=== PATIENT | male | born 1975 | race Caucasian/White ===

== ENCOUNTER 2016-12-18 07:21 | Inpatient (IN) | payer BC ==
[~2016-12-18] VITALS: Ht 188 cm; Wt 101.5 kg
[2016-12-18 07:25] VITALS: BP 133/87; PULSE 99; RESP 16; TEMP 98.4; O2SAT 100
[2016-12-18] MEDS ORDERED: DAPA1TAB PO (07:45)
[2016-12-18] MEDS ORDERED: METF1000 PO (07:45)
[2016-12-18] MEDS ORDERED: GLIP10TA6 PO (07:45)
[2016-12-18] MEDS ORDERED: ACYC400T PO (07:45)
[2016-12-18] MEDS ORDERED: DOXY1CAP91 PO (07:46)
[2016-12-18] MEDS ORDERED: VANCOMYCIN INJ 1,000 MG in SODIUM CHLOR 0.9% 250 ML INJ 250 ML IV STA (07:54)
[2016-12-18] MEDS ORDERED: PIPERACIL-TAZO 4.5 GM PREMIX 100 ML IV STA (07:54)
--- NOTE | 2016-12-18 08:08 | PD ---
HPI Chief Complaint: Eye Problems/Injury Time Seen by Provider: 07:54 Travel History International Travel<30 days: No Contact w/Intl Traveler<30days: No Traveled to known affect area: No History of Present Illness HPI 41-year-old male with history of recent diagnosis of diabetes, currently on metformin, presents to the ER today because he states that he had been seen 3 days ago for right elbow skin infection at an urgent care facility, has been on dicloxacillin for 3 days and the area of redness is spreading. He has also noticed a left upper eyelid area of redness and irritation in the last day. He denies any fevers, vomiting, or any other issues. He does not have any other skin lesions. He denies any eye discharge, vision change, or any other issues. Modifying Factors: None Associated Signs & Symptoms: Worsening redness around the right elbow, left upper eyelid skin irritation Risk Factors: Diabetic, recent antibiotic use PFSH Past Medical History Diabetes: Yes (type 2) Patient Takes Glucophage: Yes (METFORMIN) Immunizations Current: Yes Tetanus Vaccination: Unknown Influenza Vaccination: No Social History Alcohol Use: Yes (SOCIALLY) Tobacco Use: No (NEVER) Substance Use: No Allergies-Medications (Allergen,Severity, Reaction): Coded Allergies: No Known Allergies (Unverified , 12/18/16) Reported Meds & Prescriptions Reported Meds & Active Scripts Active Reported Doxycycline (Doxycycline (Monohydrate)) 100 Mg Cap 100 Mg PO BID Acyclovir 400 Mg Tab 400 Mg PO DIRECTED Glipizide 10 Mg Tab 10 Mg PO BIDAC Take 30 minutes before a meal Farxiga (Dapagliflozin) 5 Mg Tab 5 Mg PO DAILY Metformin (Metformin HCl) 1,000 Mg Tab 1,000 Mg PO BIDPC With meals Review of Systems Except as stated in HPI: all other systems reviewed are Neg Physical Exam Narrative GENERAL: Well-developed middle age white male patient currently in no acute distress. Awake and oriented 3. SKIN: Focused skin assessment warm/dry. There is a 1 cm ulcerated area at the posterior part of the right elbow with surrounding erythema and there is also a notable posterior elbow area of induration and erythema measuring about 3 cm. Mildly tender palpation without underlying fluctuance. HEAD: Atraumatic. Normocephalic. EYES: Pupils equal and round. No scleral icterus. No injection or drainage. There is a notable left upper eyelid medially skin erythema which is mildly tender to palpation. No underlying fluctuance. ENT: No nasal bleeding or discharge. Mucous membranes pink and moist. NECK: Trachea midline. No JVD. CARDIOVASCULAR: Regular rate and rhythm. No murmur appreciated. RESPIRATORY: No accessory muscle use. Clear to auscultation. Breath sounds equal bilaterally. GASTROINTESTINAL: Abdomen soft, non-tender, nondistended. Hepatic and splenic margins not palpable. MUSCULOSKELETAL: No obvious deformities. No clubbing. No cyanosis. No edema. Nontender range of motion at the elbow. NEUROLOGICAL: Awake and alert. No obvious cranial nerve deficits. Motor grossly within normal limits. Normal speech. PSYCHIATRIC: Appropriate mood and affect; insight and judgment normal. Data Data Last Documented VS Vital Signs Date Time Temp Pulse Resp B/P Pulse Ox O2 Delivery O2 Flow Rate FiO2 12/18/16 07:25 98.4 99 16 133/87 100 Orders Complete Blood Count With Diff (12/18/16 07:54) Comprehensive Metabolic Panel (12/18/16 07:54) Lactic Acid Sepsis Protocol (12/18/16 07:54) Blood Culture (12/18/16 07:54) Blood Glucose (12/18/16 07:54) Ecg Monitoring (12/18/16 07:54) Iv Access Insert/Monitor (12/18/16 07:54) Oximetry (12/18/16 07:54) Oxygen Administration (12/18/16 07:54) Piperacil-Tazo 4.5 Gm Premix (Zosyn 4.5 (12/18/16 07:54) Vancomycin Inj (Vancomycin Inj) (12/18/16 07:54) Sodium Chlor 0.9% 1000 Ml Inj (Ns 1000 M (12/18/16 08:45) Insulin Human Regular Inj (Novolin R Inj (12/18/16 09:00) Diet 1800 Ada Cons Carb (12/18/16 Breakfast) Vital Signs (Adult) PAULINE.Q4H (12/18/16 09:11) Acetaminophen (Tylenol) (12/18/16 09:15) Blood Glucose Goal (Criteria) (12/18/16 09:11) Hypoglycemia 70 Mg/Dl Or < (12/18/16 09:11) Notify Dr: Other (12/18/16 09:11) Dextrose 50% In Randy (Vial) Inj (D50w (Vi (12/18/16 09:15) Glucagon Inj (Glucagon Inj) (12/18/16 09:15) Low Novolog Scale (12/18/16 11:00) Labs Laboratory Tests Test 12/18/16 08:15 White Blood Count 9.4 TH/MM3 Red Blood Count 5.39 MIL/MM3 Hemoglobin 16.9 GM/DL Hematocrit 48.3 % Mean Corpuscular Volume 89.7 FL Mean Corpuscular Hemoglobin 31.3 PG Mean Corpuscular Hemoglobin 34.9 % Concent Red Cell Distribution Width 12.1 % Platelet Count 184 TH/MM3 Mean Platelet Volume 9.4 FL Neutrophils (%) (Auto) 75.4 % Lymphocytes (%) (Auto) 16.5 % Monocytes (%) (Auto) 6.6 % Eosinophils (%) (Auto) 0.9 % Basophils (%) (Auto) 0.6 % Neutrophils # (Auto) 7.1 TH/MM3 Lymphocytes # (Auto) 1.5 TH/MM3 Monocytes # (Auto) 0.6 TH/MM3 Eosinophils # (Auto) 0.1 TH/MM3 Basophils # (Auto) 0.1 TH/MM3 CBC Comment DIFF FINAL Differential Comment Sodium Level 134 MEQ/L Potassium Level 4.1 MEQ/L Chloride Level 98 MEQ/L Carbon Dioxide Level 28.3 MEQ/L Anion Gap 8 MEQ/L Blood Urea Nitrogen 10 MG/DL Creatinine 0.95 MG/DL Estimat Glomerular Filtration 87 ML/MIN Rate Random Glucose 446 MG/DL Lactic Acid Level 1.3 mmol/L Calcium Level 9.3 MG/DL Total Bilirubin 0.7 MG/DL Aspartate Amino Transf 13 U/L (AST/SGOT) Alanine Aminotransferase 26 U/L (ALT/SGPT) Alkaline Phosphatase 101 U/L Total Protein 7.9 GM/DL Albumin 3.9 GM/DL [facility] Medical Decision Making Medical Screen Exam Complete: Yes Emergency Medical Condition: Yes Medical Record Reviewed: Yes Interpretation(s) Laboratory Tests Test 12/18/16 08:15 Neutrophils (%) (Auto) 75.4 % (16.0-70.0) Sodium Level 134 MEQ/L (136-145) Estimat Glomerular Filtration 87 ML/MIN (>89) Rate Random Glucose 446 MG/DL (74-106) Aspartate Amino Transf 13 U/L (15-37) (AST/SGOT) Differential Diagnosis Right elbow area erythema, left eyelid irritationcellulitis versus blepharitis versus sepsis Narrative Course Labwork shows some shift in the neutrophil percentage. He has a fairly elevated glucose level. IV fluids and insulin was given in the ER. He was given IV antibiotics after cultures were drawn. At this point, I appears that he is not doing well than outpatient and he has poorly controlled diabetes. My plan would be to admit him for IV) therapy at this point and to get better controlled blood sugars. Case was discussed with Dr. Gregg for admission. Sepsis Criteria SIRS Criteria (2 or more): Heart rate over 90 Diagnosis Primary Impression: Sepsis affecting skin Additional Impression: Hyperglycemia Admitting Information Admitting Physician Requests: Admit Keily Butler MD Dec 18, 2016 08:08
[2016-12-18 08:29] LABS: AUTOMATED NEUTROPHIL # 7.1 TH/MM3 (1.8-7.7); BASOPHIL # 0.1 TH/MM3 (0-0.2); BASOPHIL % 0.6 % (0.0-2.0); EOSINOPHIL # 0.1 TH/MM3 (0-0.4); EOSINOPHIL % 0.9 % (0.0-4.0); HEMATOCRIT 48.3 % (39.0-51.0); HEMO FLAGS DIFF FINAL; LYMPH % 16.5 % (9.0-44.0); LYMPHOCYTE # 1.5 TH/MM3 (1.0-4.8); MEAN CELL VOLUME 89.7 FL (80.0-100.0); MEAN CORPUSCULAR HEMOGLOBIN 31.3 PG (27.0-34.0); MEAN CORPUSCULAR HGB CONC 34.9 % (32.0-36.0); MONO % 6.6 % (0.0-8.0); NEUT % 75.4 % (16.0-70.0); PLATELET COUNT 184 TH/MM3 (150-450); RED BLOOD COUNT 5.39 MIL/MM3 (4.50-5.90); RED CELL DISTRIBUTION WIDTH 12.1 % (11.6-17.2); WHITE BLOOD COUNT 9.4 TH/MM3 (4.0-11.0)
[2016-12-18 08:32] VITALS: BP 114/70; PULSE 96; RESP 16; O2SAT 99
[2016-12-18 08:34] LABS: CHLORIDE 98 MEQ/L (98-107); POTASSIUM 4.1 MEQ/L (3.5-5.1); SODIUM (NA) 134 MEQ/L (136-145)
[2016-12-18 08:38] LABS: ANION GAP 8 MEQ/L (5-15); BICARBONATE 28.3 MEQ/L (21.0-32.0)
[2016-12-18 08:41] LABS: BLOOD UREA NITROGEN 10 MG/DL (7-18)
[2016-12-18 08:45] LABS: ALKALINE PHOSPHATASE 101 U/L (45-117); ALT (GPT) 26 U/L (12-78); AST (GOT) 13 U/L (15-37); GLOMERULAR FILTRATION RATE 87 ML/MIN (>89); TOTAL BILIRUBIN ADULT 0.7 MG/DL (0.2-1.0)
[2016-12-18] MEDS ORDERED: SODIUM CHLOR 0.9% 1000 ML INJ 1,000 ML IV ONE (08:45)
[2016-12-18] MEDS ORDERED: INSULIN HUMAN REGULAR 1,000 UNITS/10 ML VIAL IV PUSH ONE (09:00)
[2016-12-18] MEDS ORDERED: DEXTROSE 50% IN WATER 50 ML VIAL(D50) IV PRN (09:15)
[2016-12-18] MEDS ORDERED: GLUCAGON 1 MG/ML VIAL OTHER PRN (09:15)
[2016-12-18] MEDS ORDERED: ACETAMINOPHEN 325 MG TAB PO PRN (09:15)
[2016-12-18 09:33] VITALS: BP 106/69; PULSE 95; RESP 16; O2SAT 99
[2016-12-18 10:41] VITALS: BP 118/87; PULSE 89; RESP 18; TEMP 97.4; O2SAT 99
[2016-12-18] MEDS ORDERED: Vancomycin Consult Pharmacy 1 EA OTHER SCH (11:45)
--- NOTE | 2016-12-18 11:50 | HHI.HP ---
[facility] Primary Care Physician No Primary Care Physician Admission Diagnosis right elbow cellulitis/failed outpatient therapy/hyperglycemia Diagnoses: (1) Cellulitis of right upper extremity Diagnosis: Principal Chief Complaint: infection of the right arm Travel History International Travel<30 Days: No Contact w/Intl Traveler <30 Da: No Traveled to Known Affected Are: No History of Present Illness patient is a 41 y/o male with recently-diagnosed diabetes presented to ER with redness and swelling of the right arm. he says that he didn't know ' how he got the infection'. but it started three days ago with some redness just above the right arm. he went to urgent care and was prescribed Doxycycline which he took for three days with no significant improvement. pain is mild at the site. he denies any fever or chills.he's also complaining of some redness of the left eyelid with no eye pain or vision changes.he says that he was diagnosed with diabetes three months ago but he doesn't check his blood sugar at home. Review of Systems Constitutional: DENIES: Fever, Weight loss, Chills, Night Sweats Eyes: COMPLAINS OF: Eye inflammation, DENIES: Blurred vision, Diplopia, Vision loss, Double Vision Ears, nose, mouth, throat: DENIES: Tinnitus, Vertigo, Throat pain, Epistaxis Respiratory: DENIES: Apneas, Cough, Snoring, Wheezing, Hemoptysis, Sputum production, Shortness of breath Cardiovascular: DENIES: Chest pain, Palpitations, Syncope, Dyspnea on Exertion , PND, Lower Extremity Edema, Orthopnea, Claudication Gastrointestinal: DENIES: Abdominal pain, Black stools, Bloody stools, Constipation, Diarrhea, Nausea, Vomiting, Difficulty Swallowing, Anorexia Genitourinary: DENIES: Urinary frequency, Urgency, Hematuria, Dysuria Musculoskeletal: COMPLAINS OF: Joint pain (right arm), DENIES: Muscle aches, Stiffness, Joint Swelling Integumentary: DENIES: Rash Neurologic: DENIES: Abnormal gait, Headache, Localized weakness, Paresthesias, Seizures, Speech Problems, Tremor, Poor Balance Psychiatric: DENIES: Anxiety, Confusion, Mood changes, Depression, Hallucinations, Agitation, Suicidal Ideation, Homicidal Ideation, Delusions Past Family Social History Past Medical History diabetes mellitus Past Surgical History knee surgery. Reported Medications Doxycycline (Doxycycline (Monohydrate)) 100 Mg Cap 100 Mg PO BID Acyclovir 400 Mg Tab 400 Mg PO DIRECTED Glipizide 10 Mg Tab 10 Mg PO BIDAC Take 30 minutes before a meal Farxiga (Dapagliflozin) 5 Mg Tab 5 Mg PO DAILY Metformin (Metformin HCl) 1,000 Mg Tab 1,000 Mg PO BIDPC With meals Allergies: Coded Allergies: No Known Allergies (Unverified , 12/18/16) Active Ordered Medications Current Medications Piperacillin Sod/ Tazobactam Sod 100 ml @ 200 mls/hr ONCE STAT IV Last administered on 12/18/16 08:28; Start 12/18/16 at 07:54; Stop 12/18/16 at 08:23; Status DC Vancomycin HCl 1000 mg/Sodium Chloride 250 ml @ 250 mls/hr ONCE STAT IV Last administered on 12/18/16 09:07; Start 12/18/16 at 07:54; Stop 12/18/16 at 08:53; Status DC Sodium Chloride (NS 1000 ml Inj) 1,000 ml @ 999 mls/hr BOLUS ONCE IV Last administered on 12/18/16 09:03; Start 12/18/16 at 08:45; Stop 12/18/16 at 09:45; Status DC Insulin Human Regular (NovoLIN R INJ) 4 units ONCE ONCE IV PUSH Last administered on 12/18/16 08:59; Start 12/18/16 at 09:00; Stop 12/18/16 at 09:01; Status DC Acetaminophen (Tylenol) 650 mg Q4H PRN PO FEVER; Start 12/18/16 at 09:15 Dextrose (D50w (Vial) Inj) 50 ml UNSCH PRN IV HYPOGLYCEMIA-SEE COMMENTS; Start 12/18/16 at 09:15 Glucagon (Glucagon Inj) 1 mg UNSCH PRN OTHER HYPOGLYCEMIA-SEE COMMENTS; Start 12/18/16 at 09:15 Insulin Aspart (NovoLOG SUPPLEMENTAL SCALE) 1 ACHS SLIDING SCALE SQ ; Start 12/18/16 at 11:00 Family History diabetes. Social History doesn't smoke- drinks occasionally- no illicit drug abuse. Physical Exam Vital Signs Vital Signs Date Time Temp Pulse Resp B/P Pulse Ox O2 Delivery O2 Flow Rate FiO2 12/18/16 10:41 97.4 89 18 118/87 99 12/18/16 09:33 95 16 106/69 99 Room Air 12/18/16 08:32 96 16 114/70 99 Room Air 12/18/16 08:32 99 Room Air 12/18/16 08:32 16 99 Room Air 12/18/16 07:25 98.4 99 16 133/87 100 Physical Exam GENERAL: This is a well-nourished, well-developed patient, in no apparent distress. SKIN: erythema over the right arm HEAD: Atraumatic. Normocephalic. No temporal or scalp tenderness. EYES: Pupils equal round and reactive. Extraocular motions intact. No scleral icterus. No injection or drainage. ENT: Nose without bleeding, purulent drainage or septal hematoma. Throat without erythema, tonsillar hypertrophy or exudate. Uvula midline. Airway patent. NECK: Trachea midline. No JVD or lymphadenopathy. Supple, nontender, no meningeal signs. CARDIOVASCULAR: Regular rate and rhythm without murmurs, gallops, or rubs. RESPIRATORY: Clear to auscultation. Breath sounds equal bilaterally. No wheezes , rales, or rhonchi. GASTROINTESTINAL: Abdomen soft, non-tender, nondistended. No hepato-splenomegaly , or palpable masses. No guarding. MUSCULOSKELETAL: swelling, warmth,tenderness and erythema over the right arm- above the elbow. NEUROLOGICAL: Awake and alert. Cranial nerves II through XII intact. Motor and sensory grossly within normal limits. Five out of 5 muscle strength in all muscle groups. Normal speech. Laboratory Laboratory Tests Test 12/18/16 08:15 White Blood Count 9.4 Red Blood Count 5.39 Hemoglobin 16.9 Hematocrit 48.3 Mean Corpuscular Volume 89.7 Mean Corpuscular Hemoglobin 31.3 Mean Corpuscular Hemoglobin 34.9 Concent Red Cell Distribution Width 12.1 Platelet Count 184 Mean Platelet Volume 9.4 Neutrophils (%) (Auto) 75.4 Lymphocytes (%) (Auto) 16.5 Monocytes (%) (Auto) 6.6 Eosinophils (%) (Auto) 0.9 Basophils (%) (Auto) 0.6 Neutrophils # (Auto) 7.1 Lymphocytes # (Auto) 1.5 Monocytes # (Auto) 0.6 Eosinophils # (Auto) 0.1 Basophils # (Auto) 0.1 CBC Comment DIFF FINAL Differential Comment Sodium Level 134 Potassium Level 4.1 Chloride Level 98 Carbon Dioxide Level 28.3 Anion Gap 8 Blood Urea Nitrogen 10 Creatinine 0.95 Estimat Glomerular Filtration 87 Rate Random Glucose 446 Lactic Acid Level 1.3 Calcium Level 9.3 Total Bilirubin 0.7 Aspartate Amino Transf 13 (AST/SGOT) Alanine Aminotransferase 26 (ALT/SGPT) Alkaline Phosphatase 101 Total Protein 7.9 Albumin 3.9 Date/Time Procedure Status Source Growth 12/18/16 08:15 Aerobic Blood Culture Received Blood Peripheral Pending 12/18/16 08:15 Anaerobic Blood Culture Received Blood Peripheral Pending Result Diagram: 12/18/1615 12/18/1615 Assessment and Plan Assessment and Plan A/P - cellulitis of the right arm- failed outpatient therapy continue with broad spectrum IV antibiotics-will deescalate the antibiotic soon-pending the clinical course and cultures continue with pain control- check the soft tissue ultrasound- -left eye blepharitis- start oph. erythromycin and warm compress- -diabetes mellitus; recently-diagnosed- uncontrolled-- check A1c and start on accu-check with SSI will consider adding long-acting insulin. -DVT prophylaxis with lovenox Discussed Condition With ER physician and the patient. Physician Certification 2 Midnight Certification Type: Admission for Inpatient Services Order for Inpatient Services The services are ordered in accordance with Medicare regulations or non- Medicare payer requirements, as applicable. In the case of services not specified as inpatient-only, they are appropriately provided as inpatient services in accordance with the 2-midnight benchmark. Estimated LOS (days): 2 days is the estimated time the patient will need to remain in the hospital, assuming treatment plan goals are met and no additional complications. Post-Hospital Plan: Home Sandra Shah MD Dec 18, 2016 11:50
[2016-12-18] MEDS: ENOXAPARIN SODIUM 40 MG/0.4 ML SYRINGE SQ SCH (12:20)
[2016-12-18] MEDS: INSULIN ASPART SUPPLEMENTAL SCALE SQ SCH ×3 (12:22→21:13)
--- NOTE | 2016-12-18 15:30 | RADHPO ---
EXAM DATE/TIME: 12/18/2016 14:48 [facility] COMPARISON: No previous studies available for comparison. INDICATIONS : Right posterior elbow redness and swelling. MEDICAL HISTORY : Eye problem. Migrane. Kidney infections. Joint pain. Type 2 diabetes. Psychiatric problems. Alcohol u se. Caffeine use. SURGICAL HISTORY : Left meniscus repair. ENCOUNTER: Initial ACUITY: 4-6 days PAIN SCORE: 4/10 LOCATION: Right elbow. AREA EVALUATED: Right posterior elbow. FINDINGS: There is diffuse soft tissue edema involving the posterior right elbow soft tissues. Ill-defined comp negro hypoechoic region measures 0.9 x 0.8 x 1.4 cm. CONCLUSION: 1. Findings consistent with cellulitis of the right posterior elbow soft tissues and potential develo ping abscess measuring 0.9 x 0.8 x 1.4 cm. Bird Hatfield MD on December 18, 2016 at 15:25 Board Certified Radiologist. This report was verified electronically.
[2016-12-18] MEDS: ERYTHROMYCIN 0.5% OPTH OINT 3.5 GM TUBO LEFT EYE SCH ×2 (15:59→21:08)
[2016-12-18] MEDS: PIPERACIL-TAZO 3.375 GM PREMIX 50 ML IV SCH ×2 (15:59→21:06)
[2016-12-18 16:00] VITALS: BP 134/87; PULSE 75; RESP 18; TEMP 98.7; O2SAT 99
[2016-12-18] MEDS: VANCOMYCIN 1,000 MG/NS 250 ML IV SCH ×2 (17:48)
[2016-12-18 17:50] LABS: HEMOGLOBIN A1a 1.1 %; HEMOGLOBIN A1b 1.8 %; HEMOGLOBIN LA1C 4.3 %; HEMOGLOBIN P3 5.3 %
[2016-12-18 20:00] VITALS: BP 122/89; PULSE 81; RESP 20; TEMP 98.5; O2SAT 99
[2016-12-19] VITALS: BP 133/83; PULSE 80; RESP 20; TEMP 96.6; O2SAT 98
[2016-12-19] MEDS: ACETAMINOPHEN/HYDROcodone 325 MG/5 MG TAB PO PRN ×2 (01:17→09:10)
[2016-12-19] MEDS: VANCOMYCIN 1,000 MG/NS 250 ML IV SCH ×2 (01:17)
[2016-12-19] MEDS: PIPERACIL-TAZO 3.375 GM PREMIX 50 ML IV SCH ×4 (02:24→21:36)
[2016-12-19] MEDS: ERYTHROMYCIN 0.5% OPTH OINT 3.5 GM TUBO LEFT EYE SCH ×3 (06:00→21:36)
[2016-12-19] MEDS: INSULIN ASPART SUPPLEMENTAL SCALE SQ SCH ×4 (07:00→21:42)
[2016-12-19 08:00] VITALS: BP 126/80; PULSE 80; RESP 18; TEMP 97.5; O2SAT 98
[2016-12-19] MEDS ORDERED: PHARMACY ORDERED LAB ONE (08:45)
[2016-12-19] MEDS: INSULIN DETEMIR 100 UNITS/ML VIAL SQ SCH ×2 (10:30→21:41)
--- NOTE | 2016-12-19 10:33 | HHI.PR ---
Subjective Remarks Patient says he is feeling all right. Reports that right elbow pain has improved somewhat. Right finger tingling has resolved. He also reports left eye slow improvement. Reports left eye upper eyelid pain only with blinking. No pain with eye movement. Denies any nausea or vomiting. Denies any chest pain or shortness of breath. Objective Vital Signs Date Time Temp Pulse Resp B/P Pulse Ox O2 Delivery O2 Flow Rate FiO2 12/19/16 08:00 97.5 80 18 126/80 98 12/19/16 02:17 18 12/19/16 00:00 96.6 80 20 133/83 98 12/18/16 20:00 98.5 81 20 122/89 99 12/18/16 16:00 98.7 75 18 134/87 99 12/18/16 10:41 97.4 89 18 118/87 99 I/O 12/18/16 12/18/16 12/18/16 12/19/16 12/19/16 12/19/16 06:59 14:59 22:59 06:59 14:59 22:59 Intake Total 350 ml 340 ml 350 ml Balance 350 ml 340 ml 350 ml Intake Oral 240 ml IV Total 350 ml 100 ml 350 ml Result Diagram: 12/18/1615 12/18/1615 Objective Remarks GENERAL: is sitting up in bed. Appears comfortable. Alert and oriented 3. SKIN: Warm and dry. HEAD: Normocephalic. EYES: No scleral icterus. Left upper eyelid blepharitis. No extension of erythema NECK: Supple, trachea midline. No JVD or lymphadenopathy. CARDIOVASCULAR: Regular rate and rhythm without murmurs, gallops, or rubs. RESPIRATORY: Breath sounds equal bilaterally. No accessory muscle use. GASTROINTESTINAL: Abdomen soft, non-tender, nondistended. MUSCULOSKELETAL: No cyanosis, or edema. Right elbow with 1 x 1 cm abscess about 2 cm proximal to olecranon. BACK: Nontender without obvious deformity. No CVA tenderness. A/P Assessment and Plan //cellulitis of the right arm- failed outpatient therapy -continue with broad spectrum IV antibiotics -Tensional developing abscess 0.9 x 0.8 x 1.4 cm. Consult orthopedics for incision and drainage. //left eye blepharitis- cont oph. erythromycin and warm compress-stress compliance with patient and nursing. //diabetes mellitus; -recently-diagnosed- uncontrolled-A1c 12.0 -6/6 Still elevated. Add Levemir. -Consult asthma educator //DVT prophylaxis with lovenox Discharge Planning -pending orthopedic incision and drainage. -Expect discharge home in 2-3 days. Rodney Costello MD Dec 19, 2016 10:33
[2016-12-19 12:00] VITALS: BP 132/93; PULSE 81; RESP 18; TEMP 98.2; O2SAT 99
[2016-12-19] MEDS: ENOXAPARIN SODIUM 40 MG/0.4 ML SYRINGE SQ SCH (13:30)
[2016-12-19 15:59] VITALS: BP 115/88; PULSE 79; RESP 19; TEMP 98.6; O2SAT 98
--- NOTE | 2016-12-19 17:13 | MB ---
cc: JANETTE AGUILAR MD DATE OF CONSULTATION 12/19/16 CHIEF COMPLAINT Right elbow pain and swelling. HISTORY OF PRESENT ILLNESS The patient is a 41 year old white male who presents today with a 4-5 day history of right elbow pain, redness and swelling. He reports that approximately four days ago he was trying to teach his daughter how to skateboard when he fell off the skateboard and hit his elbow on the ground. He states that he had an injury and scab over the tip of his elbow. He states that approximately a day ago he started noticing significant swelling and redness on the back part of his arm. He states that it is not near the scab or injury that he originally had. He reports that it was painful, red, tender, and he also states that he had significant difficulty straightening and raising his arm. He was started on oral doxycycline and states that it did not get any better. He presented to the emergency department on 12/19/2016 and was admitted for IV antibiotics and orthopedics was consulted. He states that since the antibiotics have begun, that he has been improving. He reports that he is able to move his arm fully now. He states that the redness is starting to subside. He states he still does have the swelling on the back part of his arm, but it is slightly less tender than it was prior. He denies any numbness, tingling or radiation symptoms. Denies any shortness of breath. Denies any loss of consciousness. REVIEW OF SYSTEMS EYES: He does complain of eye inflammation of his left eye with redness and swelling. Remainder of nine point review of systems is negative except for what is in the HPI. PAST MEDICAL HISTORY Positive for diabetes. PAST SURGICAL HISTORY Right knee surgery in the past. MEDICATIONS Reported medications 1. Doxycycline 100 mg p.o. b.i.d. 2. Acyclovir. 3. Glipizide 4. Tarceva 5. Metformin no. For a complete list of inpatient medications please see the patient's MAR. ALLERGIES No known allergies. FAMILY HISTORY Diabetes. SOCIAL HISTORY Denies smoking. Reports that he drinks occasionally. No illicit drug use. PHYSICAL EXAMINATION VITAL SIGNS: Temperature 98.7, pulse 75, respiratory rate 18, blood pressure 134/87, O2 saturation 99% on room air. GENERAL: Well-developed, well-nourished 40 year old white male in no acute distress. HEAD: Normocephalic, atraumatic. EARS: Hearing intact bilaterally. EYES: The extraocular motions intact. Pupils equal, round and react to light. NECK: Supple with no evidence of lymphadenopathy. LUNGS: No use of accessory muscles or audible wheezes at bedside. HEART: No grade 4 murmur present. ABDOMEN: Soft and nontender. MUSCULOSKELETAL: Right upper extremity full motion of the shoulder, elbow, wrist and fingers with minimal discomfort. He has slight discomfort in the posterior elbow with maximal extension. He has a scab with erythema on the tip of the olecranon process. He also has noticeable erythema and swelling on the distal third of the posterior triceps, approximately 5 cm proximal to his olecranon. There is palpable fluid in this area and it is approximately 3 x 2 cm, slightly fluctuant, slightly tender. He has full sensation in median and ulnar distributions. He has full radial nerve function. Left upper extremity full motion of shoulder, elbow, wrist and fingers. No painful sensation distally. Bilateral lower extremities full movement of the hips, knees, ankles and toes with no painful sensation distally. IMAGING STUDIES Ultrasound was done which was concerning for developing abscess of the right elbow. ASSESSMENT Possible septic right elbow with developing abscess in the distal triceps. PLAN Given the patient's improvement and somewhat equivocal exam, I would recommend an MRI of his right elbow to evaluate for abscess formation. If there is indeed a developed abscess, it will likely require surgical intervention with irrigation and debridement. However, if no defined abscess has formed then we would recommend continuing with IV antibiotics and nonsurgical treatment. I will make the patient n.p.o. after midnight and order and MRI for today. If the MRI does show an abscess, we will proceed with surgery tomorrow with either Dr. Aguilar or Dr. Ghotra. I have informed the patient of this and he is in agreementg. Otherwise, he can weight bear as tolerated. We will await the MRI results today and evaluate again tomorrow. Thank you this consultation. I have reviewed the above patient and plan with Dr. Aguilar and he agrees with the above plan. Alvaro Ash Dictating for Dr. Alli Aguilar. TYJuancarlos/ /2:24 PM /4:59 PM
[2016-12-19] MEDS: VANCOMYCIN INJ 1,250 MG in SODIUM CHLOR 0.9% 250 ML INJ 250 ML IV SCH ×2 (17:33→21:38)
[2016-12-19 20:00] VITALS: BP 119/77; PULSE 79; RESP 20; TEMP 99.5; O2SAT 98
[2016-12-20] VITALS: BP 129/87; PULSE 74; RESP 20; TEMP 98.3; O2SAT 99
[2016-12-20 04:00] VITALS: BP 118/65; PULSE 66; RESP 20; TEMP 96.9; O2SAT 97
[2016-12-20 05:52] LABS: AUTOMATED NEUTROPHIL # 3.9 TH/MM3 (1.8-7.7); BASOPHIL % 0.3 % (0.0-2.0); EOSINOPHIL # 0.2 TH/MM3 (0-0.4); EOSINOPHIL % 3.3 % (0.0-4.0); HEMATOCRIT 45.7 % (39.0-51.0); HEMO FLAGS DIFF FINAL; LYMPH % 24.6 % (9.0-44.0); LYMPHOCYTE # 1.6 TH/MM3 (1.0-4.8); MEAN CELL VOLUME 90.7 FL (80.0-100.0); MEAN CORPUSCULAR HEMOGLOBIN 29.4 PG (27.0-34.0); MEAN CORPUSCULAR HGB CONC 32.4 % (32.0-36.0); MONO % 11.6 % (0.0-8.0); NEUT % 60.2 % (16.0-70.0); PLATELET COUNT 185 TH/MM3 (150-450); RED BLOOD COUNT 5.03 MIL/MM3 (4.50-5.90); RED CELL DISTRIBUTION WIDTH 12.3 % (11.6-17.2); WHITE BLOOD COUNT 6.5 TH/MM3 (4.0-11.0)
[2016-12-20] MEDS: PIPERACIL-TAZO 3.375 GM PREMIX 50 ML IV SCH ×4 (05:52→21:12)
[2016-12-20] MEDS: ERYTHROMYCIN 0.5% OPTH OINT 3.5 GM TUBO LEFT EYE SCH ×3 (05:52→21:19)
[2016-12-20] MEDS: VANCOMYCIN INJ 1,250 MG in SODIUM CHLOR 0.9% 250 ML INJ 250 ML IV SCH ×3 (05:52→22:30)
[2016-12-20 06:20] LABS: POTASSIUM 3.5 MEQ/L (3.5-5.1)
[2016-12-20 06:53] LABS: BICARBONATE 28.7 MEQ/L (21.0-32.0); MAGNESIUM 1.8 MG/DL (1.5-2.5)
[2016-12-20 08:00] VITALS: BP 121/81; PULSE 67; RESP 20; TEMP 98.2; O2SAT 98
[2016-12-20] MEDS: INSULIN DETEMIR 100 UNITS/ML VIAL SQ SCH ×2 (08:40→21:16)
[2016-12-20] MEDS: INSULIN ASPART SUPPLEMENTAL SCALE SQ SCH ×3 (11:00→21:00)
[2016-12-20] MEDS ORDERED: GADODIAMIDE PF 287 MG/ML 20 ML VIAL (for RAD MRI) IV ONE (11:17)
[2016-12-20 12:00] VITALS: BP 135/93; PULSE 67; RESP 20; TEMP 98.1; O2SAT 100
--- NOTE | 2016-12-20 12:02 | RADHPO ---
EXAM DATE/TIME: 12/20/2016 10:24 [facility] COMPARISON: No previous studies available for comparison. INDICATIONS : Abscess. Fell while riding skate board three days ago. CONTRAST: 19 cc Omniscan (gadodiamide) IV MEDICAL HISTORY : Diabetes mellitus type 2. SURGICAL HISTORY : Right knee. ENCOUNTER: Initial ACUITY: 3 day PAIN SCORE: 6/10 LOCATION: Right Elbow. TECHNIQUE: Multiplanar, multisequence MRI examination was performed without contrast and after the intravenous a dministration of gadolinium. FINDINGS: BONE/CARTILAGE: Bone marrow signal is homogeneous. Articular cartilage signal is within normal limits. TENDONS: All of the visualized tendons are intact. LIGAMENTS: The radial collateral and ulnar collateral ligament complexes are intact. MISCELLANEOUS: No evidence of joint effusion. Ulnar nerve is within normal limits. The examination does demonstrate edematous changes in the subcutaneous soft tissues along the posterior aspect of the left elbow exte nding laterally. No enhancing fluid collection to indicate abscess is seen. POST-CONTRAST: No abnormal areas of enhancement on the post-contrast images. CONCLUSION: 1. Cellulitic changes along the posterior and lateral aspect of both sides of the right elbow. No fin dings to indicate focal drainable abscess identified. Jarrett Gibbs MD on December 20, 2016 at 11:56 Board Certified Radiologist. This report was verified electronically.
--- NOTE | 2016-12-20 13:09 | HHI.PR ---
Subjective Remarks Patient says he is feeling all right today. No chest pain or shortness of breath. Right elbow still with pain and swelling, marginal improvement. Objective Vital Signs Date Time Temp Pulse Resp B/P Pulse Ox O2 Delivery O2 Flow Rate FiO2 12/20/16 12:00 98.1 67 20 135/93 100 12/20/16 08:00 98.2 67 20 121/81 98 12/20/16 04:00 96.9 66 20 118/65 97 12/20/16 00:00 98.3 74 20 129/87 99 12/19/16 20:00 99.5 79 20 119/77 98 12/19/16 15:59 98.6 79 19 115/88 98 I/O 12/19/16 12/19/16 12/19/16 12/20/16 12/20/16 12/20/16 07:00 15:00 23:00 07:00 15:00 23:00 Intake Total 350 ml 690 ml 480 ml 0 ml Balance 350 ml 690 ml 480 ml 0 ml Intake Oral 690 ml 480 ml 0 ml IV Total 350 ml # Voids 2 2 2 # Bowel Movements 0 0 0 Result Diagram: 12/20/16 0455 12/20/16 0455 Objective Remarks GENERAL: is sitting up in bed. Appears comfortable. Alert and oriented 3. No appreciable change on exam today. SKIN: Warm and dry. HEAD: Normocephalic. EYES: No scleral icterus. Left upper eyelid blepharitis. No extension of erythema NECK: Supple, trachea midline. No JVD or lymphadenopathy. CARDIOVASCULAR: Regular rate and rhythm without murmurs, gallops, or rubs. RESPIRATORY: Breath sounds equal bilaterally. No accessory muscle use. GASTROINTESTINAL: Abdomen soft, non-tender, nondistended. MUSCULOSKELETAL: No cyanosis, or edema. Right elbow with 1 x 1 cm abscess about 2 cm proximal to olecranon. BACK: Nontender without obvious deformity. No CVA tenderness. A/P Assessment and Plan //cellulitis of the right arm- failed outpatient therapy -Not improving. MRI reviewed. No focal drainable abscess. -continue with broad spectrum IV antibiotics -ortho following. Appreciate assistance. //left eye blepharitis- improving. Cont oph. erythromycin and warm compress- stress compliance with patient and nursing. //diabetes mellitus; -recently-diagnosed- uncontrolled-A1c 12.0 -12/19 Still elevated. Add Levemir. 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 Improved control. Continue insulin as ordered. //DVT prophylaxis with lovenox Discharge Planning -pending orthopedic clearance for discharge. -Expect discharge home in 2-3 days. Rodney Costello MD Dec 20, 2016 13:09
[2016-12-20] MEDS ORDERED: PHARMACY ORDERED LAB ONE (13:45)
[2016-12-20] MEDS: ENOXAPARIN SODIUM 40 MG/0.4 ML SYRINGE SQ SCH (15:03)
[2016-12-20 16:02] VITALS: BP 128/93; PULSE 60; RESP 20; TEMP 95.7; O2SAT 100
--- NOTE | 2016-12-20 17:04 | PD.ORT.PN ---
Subjective Subjective Remarks s/p right elbow infection MRI done today patient reports that elbow improving. no significant increase in pain Objective Vitals Vital Signs Date Time Temp Pulse Resp B/P Pulse Ox O2 Delivery O2 Flow Rate FiO2 12/20/16 16:02 95.7 60 20 128/93 100 12/20/16 12:00 98.1 67 20 135/93 100 12/20/16 08:00 98.2 67 20 121/81 98 12/20/16 04:00 96.9 66 20 118/65 97 12/20/16 00:00 98.3 74 20 129/87 99 12/19/16 20:00 99.5 79 20 119/77 98 I/O 12/19/16 12/19/16 12/19/16 12/20/16 12/20/16 12/20/16 07:00 15:00 23:00 07:00 15:00 23:00 Intake Total 350 ml 690 ml 480 ml 0 ml Balance 350 ml 690 ml 480 ml 0 ml Intake Oral 690 ml 480 ml 0 ml IV Total 350 ml # Voids 2 2 2 # Bowel Movements 0 0 0 Result Diagram: 12/20/16 0455 12/20/16 0455 Imaging Last 24 hours Impressions Elbow MRI 12/20/16 0000 Signed Impressions: Service Date/Time: Tuesday, December 20, 2016 10:24 - CONCLUSION: 1. Cellulitic changes along the posterior and lateral aspect of both sides of the right elbow. No findings to indicate focal drainable abscess identified. Jarrett Gibbs MD Objective Remarks RUE: Full ROM with minimal discomfort. +erythema and swelling of posterior elbow. Scab with erythema at olecranon. NVI. nontender Assessment & Plan Assessment and Plan 1) Right elbow infection -WBAT -regular diet -MRI did not show any defined abscess. would recommend nonop treatment with Abx at this time -nonsurgical treatment -continue Abx -ortho cleared for discharge when abx arranged -f/u with Dr Aguilar or PA in 2 weeks Alvaro Ash Dec 20, 2016 17:04
[2016-12-20 20:00] VITALS: BP 112/72; PULSE 71; RESP 20; TEMP 98.2; O2SAT 98
[2016-12-21] VITALS: BP 123/82; PULSE 71; RESP 20; TEMP 98.1; O2SAT 98
[2016-12-21] MEDS: PIPERACIL-TAZO 3.375 GM PREMIX 50 ML IV SCH ×2 (03:19→08:42)
[2016-12-21 04:00] VITALS: BP 109/71; PULSE 71; RESP 20; TEMP 97.6; O2SAT 98
[2016-12-21 05:52] LABS: POTASSIUM 3.6 MEQ/L (3.5-5.1)
[2016-12-21 05:53] LABS: AUTOMATED NEUTROPHIL # 5.2 TH/MM3 (1.8-7.7); BASOPHIL % 0.3 % (0.0-2.0); EOSINOPHIL # 0.1 TH/MM3 (0-0.4); EOSINOPHIL % 1.8 % (0.0-4.0); HEMATOCRIT 43.5 % (39.0-51.0); HEMO FLAGS DIFF FINAL; LYMPH % 19.9 % (9.0-44.0); LYMPHOCYTE # 1.6 TH/MM3 (1.0-4.8); MEAN CELL VOLUME 89.7 FL (80.0-100.0); MEAN CORPUSCULAR HEMOGLOBIN 30.4 PG (27.0-34.0); MEAN CORPUSCULAR HGB CONC 33.9 % (32.0-36.0); MONO % 13.1 % (0.0-8.0); NEUT % 64.9 % (16.0-70.0); PLATELET COUNT 170 TH/MM3 (150-450); RED BLOOD COUNT 4.85 MIL/MM3 (4.50-5.90); RED CELL DISTRIBUTION WIDTH 12.1 % (11.6-17.2); WHITE BLOOD COUNT 7.9 TH/MM3 (4.0-11.0)
[2016-12-21 05:58] LABS: BICARBONATE 27.9 MEQ/L (21.0-32.0); MAGNESIUM 1.9 MG/DL (1.5-2.5)
[2016-12-21] MEDS: VANCOMYCIN INJ 1,250 MG in SODIUM CHLOR 0.9% 250 ML INJ 250 ML IV SCH (06:00)
[2016-12-21] MEDS: ERYTHROMYCIN 0.5% OPTH OINT 3.5 GM TUBO LEFT EYE SCH (06:00)
[2016-12-21] MEDS: INSULIN ASPART SUPPLEMENTAL SCALE SQ SCH (06:04)
[2016-12-21 08:00] VITALS: BP 112/76; PULSE 76; RESP 18; TEMP 97.4; O2SAT 98
[2016-12-21] MEDS ORDERED: CIPR-9 PO (08:25)
[2016-12-21] MEDS ORDERED: ERYTOIN10 LEFT EYE (08:25)
[2016-12-21] MEDS ORDERED: NOVOLOGSS SQ (08:25)
[2016-12-21] MEDS ORDERED: LEVEMIR SQ (08:25)
[2016-12-21] MEDS ORDERED: BACT800T5 PO (08:25)
[2016-12-21] MEDS ORDERED: AUGM875T3 PO (08:25)
[2016-12-21] MEDS ORDERED: BLOOD GLUCOSE T1 TES (08:38)
[2016-12-21] MEDS ORDERED: INSU1MIS (08:38)
[2016-12-21] MEDS ORDERED: BLOOD GLUCOSE M1 KIT (08:38)
[2016-12-21] MEDS ORDERED: ALCO1PAD (08:38)
[2016-12-21] MEDS ORDERED: LANCETS1 MI1 (08:38)
[2016-12-21] MEDS: INSULIN DETEMIR 100 UNITS/ML VIAL SQ SCH (08:47)
--- NOTE | 2016-12-21 11:58 | HHI.PR ---
Subjective Remarks Patient seen this morning around 9 AM. Says he is feeling well. Denies any chest pain or shortness of breath. Reports right elbow pain controlled. He agrees to follow up with orthopedics as outpatient. Objective Vital Signs Date Time Temp Pulse Resp B/P Pulse Ox O2 Delivery O2 Flow Rate FiO2 12/21/16 08:00 97.4 76 18 112/76 98 12/21/16 04:00 97.6 71 20 109/71 98 12/21/16 00:00 98.1 71 20 123/82 98 12/20/16 20:00 98.2 71 20 112/72 98 12/20/16 16:02 95.7 60 20 128/93 100 12/20/16 12:00 98.1 67 20 135/93 100 I/O 12/20/16 12/20/16 12/20/16 12/21/16 12/21/16 12/21/16 07:00 15:00 23:00 07:00 15:00 23:00 Intake Total 0 ml 800 ml 220 ml 120 ml Balance 0 ml 800 ml 220 ml 120 ml Intake Oral 0 ml 800 ml 220 ml 120 ml # Voids 2 4 2 1 # Bowel Movements 0 0 0 0 Result Diagram: 12/21/16 0503 12/21/16 0503 Imaging Last Impressions Elbow MRI 12/20/16 0000 Signed Impressions: Service Date/Time: Tuesday, December 20, 2016 10:24 - CONCLUSION: 1. Cellulitic changes along the posterior and lateral aspect of both sides of the right elbow. No findings to indicate focal drainable abscess identified. Jarrett Gibbs MD Upper Extremity Ultrasound 12/18/16 0000 Signed Impressions: Service Date/Time: Sunday, December 18, 2016 14:48 - CONCLUSION: 1. Findings consistent with cellulitis of the right posterior elbow soft tissues and potential developing abscess measuring 0.9 x 0.8 x 1.4 cm. Bird Hatfield MD Objective Remarks GENERAL: is sitting up in bed. Appears comfortable. Alert and oriented 3. SKIN: Warm and dry. HEAD: Normocephalic. EYES: No scleral icterus. Left upper eyelid blepharitis. No extension of erythema NECK: Supple, trachea midline. No JVD or lymphadenopathy. CARDIOVASCULAR: Regular rate and rhythm without murmurs, gallops, or rubs. RESPIRATORY: Breath sounds equal bilaterally. No accessory muscle use. GASTROINTESTINAL: Abdomen soft, non-tender, nondistended. MUSCULOSKELETAL: No cyanosis, or edema. Right elbow with 1 x 1 cm region of induration, erythema about 2 cm proximal to olecranon, which appears to be forming into abscess. BACK: Nontender without obvious deformity. No CVA tenderness. A/P Assessment and Plan //cellulitis of the right arm- failed outpatient therapy -Not improving. MRI reviewed. No focal drainable abscess. -continue with broad spectrum IV antibiotics -MRI negative for abscess. Patient will follow-up with orthopedics for incision evaluation. Expect abscess to form over the next few days. -Discharge home on broad-spectrum antibiotics for cellulitis in patient with uncontrolled diabetes. //left eye blepharitis- improved. Cont oph. erythromycin and warm compress- stress compliance with patient and nursing. Follow-up with her Medicare //diabetes mellitus; -recently-diagnosed- uncontrolled-A1c 12.0 -12/19 Still elevated. Add Levemir. 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 Improved control. Continue insulin as ordered. -12/21. Patient has been injecting himself with insulin for the past several days. Nursing has taught him insulin sliding scale. Discharge home with insulin. Follow-up primary care. //DVT prophylaxis with lovenox Discharge Planning Discharge home with antibiotics to complete treatment course. Follow-up with orthopedics as outpatient to undergo incision and drainage of abscess which is expected to perform over the next several days. Rodney Cotsello MD Dec 21, 2016 11:58
--- NOTE | 2016-12-21 12:02 | HHI.DS ---
Discharge Summary Admission Date Dec 18, 2016 at 09:14 Discharge Date: Dec 21, 2016 Admitting Diagnosis right elbow cellulitis/failed outpatient therapy/hyperglycemia (1) Cellulitis of right upper extremity ICD Code: L03.113 Diagnosis: Principal Procedures No invasive procedures. Brief History - From Admission patient is a 41 y/o male with recently-diagnosed diabetes presented to ER with redness and swelling of the right arm. he says that he didn't know ' how he got the infection'. but it started three days ago with some redness just above the right arm. he went to urgent care and was prescribed Doxycycline which he took for three days with no significant improvement. pain is mild at the site. he denies any fever or chills.he's also complaining of some redness of the left eyelid with no eye pain or vision changes.he says that he was diagnosed with diabetes three months ago but he doesn't check his blood sugar at home. CBC/BMP: 12/21/16 0503 12/21/16 0503 Significant Findings Laboratory Tests Test 12/20/16 12/20/16 12/21/16 04:55 14:10 05:03 Monocytes (%) (Auto) 11.6 % 13.1 % (0.0-8.0) (0.0-8.0) Creatinine 0.58 MG/DL (0.60-1.30) Random Glucose 181 MG/DL 166 MG/DL (74-106) (74-106) Calcium Level 8.0 MG/DL 8.4 MG/DL (8.5-10.1) (8.5-10.1) Albumin 2.8 GM/DL 2.8 GM/DL (3.4-5.0) (3.4-5.0) Vancomycin Level Trough 13.7 MCG/ML (5.0-10.0) Monocytes # (Auto) 1.0 TH/MM3 (0-0.9) Imaging Last Impressions Elbow MRI 12/20/16 0000 Signed Impressions: Service Date/Time: Sunday, December 20, 2016 10:24 - CONCLUSION: 1. Cellulitic changes along the posterior and lateral aspect of both sides of the right elbow. No findings to indicate focal drainable abscess identified. Jarrett Gibbs MD Upper Extremity Ultrasound 12/18/16 0000 Signed Impressions: Service Date/Time: Sunday, December 18, 2016 14:48 - CONCLUSION: 1. Findings consistent with cellulitis of the right posterior elbow soft tissues and potential developing abscess measuring 0.9 x 0.8 x 1.4 cm. Bird Hatfield MD Hospital Course Patient was treated with broad-spectrum antibiotics, with improvement in erythema of right arm cellulitis. This appeared to be turning into an abscess, and orthopedics was consulted for incision and drainage. Ultrasound showed abscess him as above, however MRI negative for abscess. Abscess is expected to form over the next few days. Blood cultures remain negative. Patient will follow-up with orthopedics as outpatient for incision and drainage of abscess which is expected to form. Patient will continue on broad-spectrum antibiotics for cellulitis in uncontrolled diabetic. Patient was also found to have blepharitis of the left thigh, which improved with urethral mycin. He will continue erythromycin to complete treatment course. Patient received diabetic teaching from nurse over several days. He will be placed on sliding scale and Levemir at bedtime. He will follow-up with primary care as outpatient. For problem-based summary from most recent progress note, please see below. //cellulitis of the right arm- failed outpatient therapy -Not improving. MRI reviewed. No focal drainable abscess. -continue with broad spectrum IV antibiotics -MRI negative for abscess. Patient will follow-up with orthopedics for incision evaluation. Expect abscess to form over the next few days. -Discharge home on broad-spectrum antibiotics for cellulitis in patient with uncontrolled diabetes. //left eye blepharitis- improved. Cont oph. erythromycin and warm compress- stress compliance with patient and nursing. Follow-up with her Medicare //diabetes mellitus; -recently-diagnosed- uncontrolled-A1c 12.0 -12/19 Still elevated. Add Levemir. 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 Improved control. Continue insulin as ordered. -12/21. Patient has been injecting himself with insulin for the past several days. Nursing has taught him insulin sliding scale. Discharge home with insulin. Follow-up primary care. //DVT prophylaxis with lovenox Discharge Planning Discharge home with antibiotics to complete treatment course. Follow-up with orthopedics as outpatient to undergo incision and drainage of abscess which is expected to perform over the next several days. Pt Condition on Discharge: Good Discharge Disposition: Discharge Home Discharge Time: > 30 minutes Discharge Instructions DIET: Follow Instructions for: Diabetic Diet Speech Therapy-Diet Recommends: Regular Activities you can perform: Regular-No Restrictions Follow up Referrals: Orthopedics - 2 Weeks @ [facility] with Seb Aguilar MD PCP Follow-up - 1 Week New Medications: Alcohol Swabs (Alcohol Prep Pads) 70 % Pad 1 PAD .ROUTE DIRECTED Aseptic process #1 Ref 0 BOX Amoxicillin-Clavulanate (Augmentin) 875-125 Mg Tab 1 TAB PO BID Infection Days 10 Ref 0 TAB Blood Glucose Monitoring W/Device (Blood Glucose Monitoring W/Device) 1 Kit Kit 1 KIT .ROUTE DIRECTED Blood Sugar Management #1 Ref 0 KIT Blood Glucose Test Strips (Blood Glucose Test Strips) Strips Strip 1 EA .ROUTE DIRECTED Blood Sugar Management #1 Ref 0 BOX Ciprofloxacin (Cipro) 500 Mg Tab 500 MG PO BID Infection Days 10 Ref 0 TAB Insulin Syringe/Needle U-100 (Insulin Syringe/U-100/1Ml 28G X 1/2" 1 ml) 1 Mis Mis 1 EA .ROUTE DIRECTED Blood Sugar Management #1 BOX Lancets (Lancets) 1 Mis Mis 1 EA .ROUTE DIRECTED Blood Sugar Management #1 Ref 0 BOX Sulfamethoxazole-Trimethoprim (Bactrim DS) 800-160 Mg Tab 1 TAB PO BID Infection #20 Ref 0 TAB Erythromycin Opth Oint (Erythromycin Opth Oint) 5 Mg/Gm Oint 1 APPLIC LEFT EYE Q8HR eye infection Days 10 TUBE Insulin Aspart Inj (Novolog Inj) 100 Unit/Ml Inj 1 INJECTION SQ ACHS SLIDING SCALE Blood Sugar Management Days 30 INJECTION Insulin Detemir Inj (Levemir Inj) 1,000 unit/ 10 ML Vial 8 UNITS SQ HS Blood Sugar Management Days 30 INJECTION Continued Medications: Acyclovir (Acyclovir) 400 Mg Tab 400 MG PO DIRECTED Mgmt Viral Infection Ref 0 TAB Dapagliflozin (Farxiga) 5 Mg Tab 5 MG PO DAILY Blood Sugar Management #30 Ref 0 TAB Metformin (Metformin) 1,000 Mg Tab 1000 MG PO BIDPC With meals Blood Sugar Management #60 Ref 0 TAB Discontinued Medications: Doxycycline (Monohydrate) (Doxycycline) 100 Mg Cap 100 MG PO BID Glipizide (Glipizide) 10 Mg Tab 10 MG PO BIDAC Take 30 minutes before a meal Blood Sugar Management #60 Ref 0 TAB Rodney Costello MD Dec 21, 2016 12:01
== END 2016-12-21 11:31 | disposition home or self-care (01) | DRG 603 ==
LOC: PHED 07:21 → PHEDA 09:14 → PH3B 10:16
PROVIDERS: ADMIT Internal Medicine; ATTEND Internal Medicine
DX: L03.113 Cellulitis of right upper limb (principal); E11.65 Type 2 diabetes mellitus with hyperglycemia; H01.006 Unspecified blepharitis left eye, unspecified eyelid
CPT/HCPCS: 73223; 76882; 80053; 80069; 80202; 82948; 83036; 83605; 83735; 85025; 87040; 96365; 96375; A9579; J1650; J1815; J2543; J3370; J7030; J7050